=== PATIENT | male | born 1930 | race Caucasian/White ===

== ENCOUNTER → 2016-07-08 | Outpatient (CLI) | payer MEDICARE ==
--- NOTE | 2016-07-08 16:29 | DI ---
Indication: ITS.REASON: N29 Other disorders of kidney and ureter in diseases classified e PROCEDURE: US RENAL DOPPLER: Encounter: Initial Comparison: None Findings: Scans of the kidneys demonstrate normal morphology. The right kidney measures 9.7 cm in length. The left kidney measures 9.7 cm in length. There is no collecting system dilatation, contour deforming mass, nephrolithiasis, or abnormal perinephric fluid collection. Color flow duplex Doppler imaging demonstrates normal vascularization. Resistive indices from the intrarenal arteries in the upper, middle, and lower portions of the right kidney are normal. Resistive indices from the intrarenal arteries in the upper, middle, and lower portions of the left kidney are normal. Arterial waveforms are normal. The renal artery aortic ratio is normal, measuring 1.2 on the right and 1.0 on the left. Impression: No evidence of hemodynamically significant renal arterial stenosis. .
== END ==
LOC: IMA 10:32
PROVIDERS: ATTEND Family Medicine
DX: N29 Other disorders of kidney and ureter in diseases classified elsewhere (principal)